=== PATIENT | male | born 2000 | race Caucasian/White ===

== ENCOUNTER 2022-12-09 10:00 | Emergency (ER) | payer OTHER, SELFPAY ==
[2022-12-09 10:04] VITALS: BP 137/80; PULSE 72; RESP 20; TEMP 36.6; O2SAT 98; BMI 27.3
--- NOTE | 2022-12-09 10:11 | ED.UPPEXIN1 ---
HPI - Extremity Injury (Upper) General Chief Complaint: Extremity Injury, Upper Stated Complaint: UPPER EXTREMITY INJURY/RIGHT ARM Time Seen by Provider: 12/09/22 10:11 Source: patient Mode of arrival: walk-in Limitations: no limitations History of Present Illness HPI narrative: pt presents to emergency department complaining of right elbow pain. Patient states pain started last night. He states that he was doing some heavy lifting and splint. A basket of laundry at home and had sharp pain to the lateral condyle. He states since then is having a hard time straightening it and moving it. Not taking anything at home for the pain as it doesn't Take any medications. He does not want any injections. He denies any direct trauma to the elbow. He denies any edema. He denies any paresthesias. Pain is worse when he moves his middle finger flexes and is. She denies any previous injury to the elbow. He denies any fever, chills. Related Data Previous Rx's Medication Instructions Recorded ibuprofen 800 mg tablet 800 mg PO Q8H PRN pain #20 tabs 12/09/22 prednisone 20 mg tablet 20 mg PO DAILY 3 days #3 tabs 12/09/22 Allergies Allergy/AdvReac Type Severity Reaction Status Date / Time No Known Drug Allergies Allergy Verified 12/09/22 10:08 Review of Systems ROS Status of ROS 10 or more systems reviewed and unremarkable except as noted in history and below Exam Narrative Exam Narrative: Nurses notes and vital signs reviewed and patient is not hypoxic. General: Nontoxic, Well-appearing and in no apparent distress. Skin: Warm, dry, no pallor noted. No Rash Head: Normocephalic, atraumatic. Neck: Supple, non-tender. Eye: Pupils are equal, round and EOMI. No scleral icterus. Ears, Nose, Mouth, and Throat: TM clear, no posterior oropharynx erythema or nasal mucosal hypertrophy, uvula is mid-line Oral mucosa is moist Cardiovascular: Regular Rate and Rhythm without murmur, gallop or rub. Respiratory: No accessory muscle use or respiratory distress. Lungs are clear to auscultation, no wheezing, rales or rhonchi Chest Wall: no tenderness Back: No midline thoracic or lumbar vertebral tenderness. No CVA tenderness Musculoskeletal: The rest to palpation to the right lateral condyle. Distal erythema, or ecchymosis, signs of trauma, or infection. Full range of motion. Radial pulse +2, capillary refill is brisk. Normal sensation to the thumb, middle finger, and pinky. no calf or popliteal tenderness, no lower extremity edema/swelling GI: Abdomen is soft, non-distended. Normal bowel sounds. No masses appreciated. No tenderness to palpation. No rebound, guarding, or rigidity noted. Neurological: A&O x4. No cranial nerve dysfunction observed. No truncal ataxia. Moves all extremities. Sensation intact. Psychiatric: Cooperative and interactive. Normal mood and affect. Constitutional Vital Signs, click to edit/add: Last Vital Signs Temp 98 F 12/09/22 10:04 Pulse 72 12/09/22 10:04 Resp 20 12/09/22 10:04 BP 137/80 H 12/09/22 10:04 Pulse Ox 98 12/09/22 10:04 O2 Del Method Room Air 12/09/22 10:04 Course Vital Signs Vital signs: Vital Signs Temperature 98 F 12/09/22 10:04 Pulse Rate 72 12/09/22 10:04 Respiratory Rate 20 12/09/22 10:04 Blood Pressure 137/80 H 12/09/22 10:04 Pulse Oximetry 98 12/09/22 10:04 Oxygen Delivery Method Room Air 12/09/22 10:04 Temperature 98 F 12/09/22 10:04 Pulse Rate 72 12/09/22 10:04 Respiratory Rate 20 12/09/22 10:04 Blood Pressure 137/80 H 12/09/22 10:04 Pulse Oximetry 98 12/09/22 10:04 Oxygen Delivery Method Room Air 12/09/22 10:04 MDM - Extremity Injury (Upper) MDM Narrative Medical decision making narrative: History and physical is consistent with lateral epicondylitis. X-ray was done and is unremarkable. This was reviewed and interpreted by me. Patient was given anti-inflammatories, steroids, advised to use a brace, Sourav wrap was applied for now. Rest follow-up with primary care doctor. At this time the patient is without objective evidence of an acute process requiring hospitalization or inpatient management. The patient has remained hemodynamically stable. No additional indication for emergent studies at this time. I answered all questions. Discussed discharge instructions including standard anticipatory guidance and what should prompt a return to the emergency department, including if they get worse are not getting better or develops any new or concerning symptoms. I've given them specific time frame in which to follow-up, and who to follow-up with. The patient demonstrates understanding. Patient is nontoxic and stable for discharge with outpatient follow-up. This note was created with the assistance of a speech recognition program. Although the intention is to generate documents that actually reflects the content of the visit, no guarantees can be provided that every mistake has been identified and corrected by editing. Differential Diagnosis Differential diagnosis: Likely sprain and strain of wrist and fracture of humerus Discharge Plan Discharge Chief Complaint: Extremity Injury, Upper Clinical Impression: Epicondylitis, lateral (tennis elbow) Patient Disposition: Home, Self-Care Time of Disposition Decision: 11:18 Condition: Good Mode of Transportation: Private Vehicle Prescriptions / Home Meds: New ibuprofen 800 mg tablet 800 mg PO Q8H PRN (Reason: pain) Qty: 20 0RF prednisone 20 mg tablet 20 mg PO DAILY 3 Days Qty: 3 0RF Instructions: Tennis Elbow (ED) Additional Instructions: Rest, take the inflammatories as prescribed. use the sourav wrap. Follow-up with primary care doctor next week for reevaluation. Return to the emergency department with any problems concerns as discussed. Stand Alone Forms: Portal Instructions Referrals: Physician,Non-Staff, MD [Primary Care Provider] - 1 week Discharge Date/Time: 12/09/22 11:31
--- NOTE | 2022-12-09 10:14 | PC.NURSE ---
PT STATES WHEN HE FULLY EXTENDS RIGHT ELBOW I WHEN THE PAIN IS INCREASED. STATES HE WAS LIFTING A LOT OF BUCKETS OF WATER YESTERDAY AND THINKS HE PULLED SOMETHING.
--- NOTE | 2022-12-09 10:24 | XR_ITS ---
The [address] [address] Patient Name: NETO LUNA MRN: [id number] date: 2000 Sex: M Assigned Patient Location: ER Current Patient Location: ER Accession/Order Number: [id number] Exam Date: 12/09/2022 10:38 Report Date: 12/09/2022 11:14 At the request of: SIS GRANT Procedure: XR elbow RT min 3V EXAM: XR elbow RT min 3V HISTORY: Right elbow pain. COMPARISON: None. TECHNIQUE: 3 views right elbow. FINDINGS: No fracture or dislocation right elbow joint. No evidence of elbow joint effusion. No significant soft tissue swelling or edema. No significant degenerative change. XR/XR elbow RT min 3V IMPRESSION: No acute process right elbow joint. Electronically authenticated by: BEKAH ELIZONDO Date: 12/09/2022 11:14
[2022-12-09] MEDS: IBUPROFEN 400 MG TABLET 800 MG PO (10:52)
== END 2022-12-09 11:31 | disposition home or self-care (01) ==
PROVIDERS: Emergency Provider Emergency Medicine
DX: M77.11 Lateral epicondylitis, right elbow (principal)
CPT/HCPCS: 73080; 99283

== ENCOUNTER 2023-04-02 09:19 | Emergency (ER) | payer BC, OTHER, SELFPAY ==
[2023-04-02 09:22] VITALS: BP 131/72; PULSE 55; RESP 18; TEMP 36.9; O2SAT 99; BMI 30.1
--- NOTE | 2023-04-02 11:08 | XR_ITS ---
The [address] [address] Patient Name: NETO LUNA MRN: [id number] date: 2000 Sex: M Assigned Patient Location: ED.MAIN Current Patient Location: Accession/Order Number: [id number] Exam Date: 04/02/2023 11:09 Report Date: 04/02/2023 11:38 At the request of: ODELL BOWEN Procedure: XR chest 1V EXAMINATION: XR chest 1V 04/02/2023 8:37 AM PST HISTORY: cough TECHNIQUE: Single frontal view of the chest acquired. COMPARISONS: None. FINDINGS: Lines/tubes/other: None. Heart and mediastinum: The heart and the mediastinum are within normal limits for technique. Bones: No acute osseous abnormality. Lungs: The lungs are clear. There is no evidence of pneumonia or pulmonary edema. Pleura: There is no significant pleural effusion or pneumothorax. Other: None. XR/XR chest 1V IMPRESSION: No acute cardiopulmonary abnormality. Electronically authenticated by: JASON MIR Date: 04/02/2023 11:38
--- NOTE | 2023-04-02 11:13 | ED.GENADUL1 ---
HPI - General Adult General Chief complaint: Upper Respiratory Infection Stated complaint: CHEST PAIN Time Seen by Provider: 04/02/23 11:08 Source: patient Mode of arrival: walk-in Limitations: no limitations History of Present Illness HPI narrative: patient's here with cough and mucus production and congestion. Does not have a history of chronic obstructive pulmonary disease her childhood asthma. No history of hospitalizations for respiratory disease. nhe does gape but has not used tobacco cigarette products. He normally does not have any mucus production. He says he also has a lot of nasal congestion when this 1st started. He is otherwise good health. He does not drink heavily and has no immunocompromising diseases. He does not have a primary care doctor. He's had this for a couple weeks and just isn't getting better. Related Data Home Medications Medication Instructions Recorded Confirmed No Known Home Medications 04/02/23 04/02/23 Allergies Allergy/AdvReac Type Severity Reaction Status Date / Time No Known Drug Allergies Allergy Verified 12/09/22 10:08 [facility] Social History Smoking status: Current every day smoker Exam Narrative Exam Narrative: awake alert pleasant appears in no distress. Pulse oximetry is ninety-nine percent and he has no respiratory distress HEENT examination shows normal sized tonsils with no exudate or erythema. There is some postnasal drip. Otherwise pharynx looks normal. His lungs examination shows just very very mild scattered rhonchi but no bronchospasm or wheezing even with coughing maneuvers the lungs do not have bronchospasm. Patient otherwise has no cough during the examination. He has no history of abdominal pain or nausea vomiting or diarrhea. Constitutional Vital Signs, click to edit/add: Last Vital Signs Temp 98.5 F 04/02/23 09:22 Pulse 55 L 04/02/23 09:22 Resp 18 04/02/23 09:22 BP 131/72 04/02/23 09:22 Pulse Ox 99 04/02/23 09:22 O2 Del Method Room Air 04/02/23 09:22 Course Vital Signs Vital signs: Vital Signs Temperature 98.5 F 04/02/23 09:22 Pulse Rate 55 L 04/02/23 09:22 Respiratory Rate 18 04/02/23 09:22 Blood Pressure 131/72 04/02/23 09:22 Pulse Oximetry 99 04/02/23 09:22 Oxygen Delivery Method Room Air 04/02/23 09:22 Temperature 98.5 F 04/02/23 09:22 Pulse Rate 55 L 04/02/23 09:22 Respiratory Rate 18 04/02/23 09:22 Blood Pressure 131/72 04/02/23 09:22 Pulse Oximetry 99 04/02/23 09:22 Oxygen Delivery Method Room Air 04/02/23 09:22 Medical Decision Making MDM Narrative Medical decision making narrative: this is a nonsmoker otherwise healthy young man with several weeks starting out with upper respiratory symptoms and now has purulent sputum production. Chest x-ray does not show any lobar infiltrates a but will be reviewed by the radiologist. Because the duration of this and. Nature of his sputum we will start him on antibiotic therapy. Discharge Plan Discharge Chief Complaint: Upper Respiratory Infection Clinical Impression: Bronchitis Patient Disposition: Home, Self-Care Time of Disposition Decision: 11:16 Prescriptions / Home Meds: No Action No Known Home Medications Additional Instructions: Z-Tai Stand Alone Forms: Portal Instructions Referrals: Physician,Non-Staff, MD [Primary Care Provider] - 1 week
== END 2023-04-02 11:22 | disposition home or self-care (01) ==
PROVIDERS: Emergency Provider Emergency Medicine Emergency Medical Services
DX: J40 Bronchitis, not specified as acute or chronic (principal); F17.290 Nicotine dependence, other tobacco product, uncomplicated
CPT/HCPCS: 71045; 99283

== ENCOUNTER 2024-11-22 11:58 | Emergency (ER) | payer OTHER, SELFPAY ==
[2024-11-22 12:18] VITALS: BP 156/87; PULSE 64; TEMP 36.8; O2SAT 98; BMI 33.5
--- OUTSIDE RECORDS SUMMARY | 2024-11-22 12:21 | XMS_ITS | CCD ---
Author Organization [facility] Care Team Providers Care Storehouse Clerk Name Role Phone TRINO FERRER Unavailable Unavailable CARLA, GALILEA Unavailable Unavailable CARLA, GALILEA Unavailable Unavailable MARCO SOLIS Unavailable Unavailable HAY, GALILEA Unavailable Unavailable Unlisted, Physician Attending Unavailable Jinny Jalloh Unavailable Pao ANDREW Attending Unavailable Medications Current Medications Medication Drug Class(es) Dates Sig (Normalized) Sig (Original) fluticasone propionate 0.05 mg/actuat metered dose nasal spray (2 sources) Corticosteroid Start: 7 take 1 spray(s) nasal route once daily Fluticasone Propionate 50 MCG/ACT 1 spray in each nostril Nasally Once a day for 30 day(s) Apr, Active methylPREDNISolone 4 mg oral tablet (2 sources) Corticosteroid Start: 7 methylPREDNISolone 4 MG as directed Orally Once a day for 6 days Apr, Active Nilwood (No Known Home Meds) (1 source) Start: 8 Nilwood (No Known Home Meds) Active August 25, 2017 12:00am Completed/Discontinued Medications Medication Drug Class(es) Dates Sig (Normalized) Sig (Original) amoxicillin 875 mg oral tablet (1 source) Penicillin-class Antibacterial Start: 05-18-2017 take 1 tablet by mouth every twelve hours Amoxicillin 875 MG 1 tablet Orally every 12 hrs for 10 day(s) Apr, Not-Taking betamethasone 0.5 mg/ml / clotrimazole 10 mg/ml topical cream (1 source) Azole Antifungal, Corticosteroid Start: 06-24-2017 End: 07-06-2017 Clotrimazole-Betame thasone 1-0.05 % cream Discontinued 1 APPLIC TOPICAL Twice daily 15 June 24, 2017 1:00am July 07, 2017 1:00am July 06, 2017 4:18am Brompheniramine / Pseudoephedrine (1 source) alpha-Adrenergic Agonist Start: 05-18-2017 take 5 mL by mouth every six hours as needed Bromfed DM 30-2-10 MG/5ML 5 ml as needed Orally every 6 hrs Apr, Not-Taking cephalexin 500 mg oral capsule (1 source) Cephalosporin Antibacterial Start: 06-24-2017 End: 07-06-2017 take 2 capsules by mouth twice daily Cephalexin (Keflex) 500 mg capsule Discontinued 1000 MG PO Twice daily 21 12June 24, 2017 1:00am July 06, 2017 4:18am cyclobenzaprine hydrochloride 10 mg oral tablet (1 source) Muscle Relaxant Start: 05-04-2017 take 1 tablet by mouth every eight hours Cyclobenzaprine HCl 10 MG 1 tablet as needed Orally Three times a day for 10 days Apr, Not-Taking ibuprofen 800 mg oral tablet (1 source) Nonsteroidal Anti-inflammatory Drug Start: 07-06-2017 End: 08-25-2017 take 1 tablet by mouth three times daily as needed for pain Ibuprofen 800 mg Tablet Discontinued 800 MG PO Three times daily as needed for Pain July 06, 2017 1:00am August 25, 2017 6:54pm metaxalone 800 mg oral tablet (1 source) Start: 07-06-2017 End: 08-25-2017 take 1 tablet by mouth three times daily as needed for muscle spasms Metaxalone (Skelaxin) 800 mg Tablet Discontinued 800 MG PO Three times daily as needed for Muscle Spasm July 06, 2017 1:00am August 25, 2017 6:54pm Problems Active Problems Problem Classification Problem Date Documented Da te Episodic/Chronic Immunizations and screening for infectious disease (2 sources) Contact with and (suspected) exposure to other viral communicable diseases; Translations: [Patient encounter status] Onset: 05-08-2021 Resolved: 05-08-2021 Episodic Comment on above: Problem List clean-u p per request of Phys. EHR Cmte Other skin disorders (1 source) Disorder of perianal skin; Translations: [Rash and other nonspecific skin eruption] 05-08-2023 Episodic Comment on above: Problem List clean-u p per request of Phys. EHR Cmte Spondylosis; intervertebral disc disorders; other back problems (1 source) Sciatica; Translations: [Sciatica, unspecified side] 05-08-2023 Episodic Comment on above: Problem List clean-u p per request of Phys. EHR Cmte Superficial injury; contusion (1 source) Contusion of hand; Translations: [Contusion of unspecified hand, initial encounter] 05-08-2023 Episodic Comment on above: Problem List clean-u p per request of Phys. EHR Cmte Viral infection (1 source) Genital warts; Translations: [Anogenital (venereal) warts] 05-08-2023 Episodic Comment on above: Problem List clean-u p per request of Phys. EHR Cmte Past or Other Problems Problem Classification Problem Date Documented Da te Episodic/Chronic Other upper respiratory infections (1 source) Acute laryngitis Onset: 05-08-2021 Resolved: 05-08-2021 Episodic Results Test Name Value Interpretation Reference Range Facility Consent for Treatmenton Consent for Treatment [id number]#1.00TIFF Normal [facility] In office Testingon 04-30-20 In office Testing [id number]#1.00TIFF Normal [facility] Registrationon 04-30-2023 Registration [id number]#1.00TIFF Normal [facility] COVID Quick Testingon 2020 Result Negative [facility] Other CARDIAC HODAN ADMITon 017 CKMB 0.68 ng/mL Normal <=2.37 The [facility] Comment on above: Performed By: #### C BEATRIZ KNOTT, TSH ####[facility] [address] [place], [place] [address]Bqovth Kathy Creatine kinase (CK) 144 U/L Normal 55-170 [facility] Comment on above: Performed By: #### C BEATRIZ KNOTT, TSH ####[facility] [address] [place], [place] [address]Dcotdg Kathy INR Coag RelTime (Bld) SEE BELOW Normal [facility] Comment on above: Result Comment: <0.0 34 ng/ml NEGATIVE 0.034-0.119 INDETERMINATE 0.120 AMI CUT OFF Performed By: #### C HEDY, BEATRIZ, TSH ####[facility] [address] [place] [address] Kathy JOSAFAT 59.5 ng/mL Normal <=121.0 [facility] Comment on above: Performed By: #### C MP, CMADM, TSH ####[facility] [address] [place] [address] Kathy TROP <0.012 Normal <=0.034 [facility] Comment on above: Performed By: #### C HEDY, BEATRIZ, TSH ####[facility] [address] [place] [address] Kathy CBC AUTO DIFFon 05-14-2017 Basophils Auto #/vol (Bld) 0.1 103/ul Normal 0.0-0.1 [facility] Comment on above: Performed By: #### C BC ####[facility] [address] [place] [address] Kathy Basophils/100 WBC Auto (Bld) 0.4 % Normal 0.2-2.0 [facility] Comment on above: Performed By: #### C BC ####[facility] [address] [place] [address] Kathy Eosinophils 0.1 103/ul Normal 0.0-0.7 [facility] Comment on above: Performed By: #### C BC ####[facility] [address] [place] [address] Kathy Eosinophils/100 leukocytes 0.7 % Critically low 0.9-7.0 [facility] Comment on above: Performed By: #### C BC ####[facility] [address] [place] [address] Kathy Erythrocyte distribution width Auto Ratio (RBC) 12.1 % Normal 11.0-15.0 [facility] Comment on above: Performed By: #### C BC ####[facility] [address] [place] [address] Kathy Erythrocytes (RBC) 5.76 106/ul Normal 4.70-6.10 [facility] Comment on above: Performed By: #### C BC ####[facility] [address] [place] [id number] Chavez Hematocrit (HCT) 48.7 % Normal 42.0-54.0 [facility] Comment on above: Performed By: #### C BC ####[facility] Dzoepw[address]hl[address] Kathy Hemoglobin mass conc (Bld) 16.6 g/dL Normal 14.0-18.0 [facility] Comment on above: Performed By: #### C BC ####[facility] [address] [place] [address] Kathy IG # 0.04 10e3/ul Critically high 0.00-0.03 [facility] Comment on above: Performed By: #### C BC ####[facility] [address] [place] [address] Kathy IG % 0.3 % Normal 0.0-0.5 [facility] Comment on above: Performed By: #### C BC ####[facility] [address] [place] [address] Kathy Lymphocytes 1.7 103/ul Normal 1.2-3.8 [facility] Comment on above: Performed By: #### C BC ####[facility] [address] [place], [place] [address]linda Chavez Lymphocytes/100 leukocytes 14.1 % Critically low 20.5-60.0 [facility] Comment on above: Performed By: #### C BC ####[facility] Pcaqestqxz[address] Kathy MANUAL DIFF REQ NO Normal [facility] Comment on above: Performed By: #### C BC ####[facility] [address] [place] [address] Kathy MCH 28.8 pg Normal 25.9-34.0 [facility] Comment on above: Performed By: #### C BC ####[facility] [address] [place], [place] [address]Kfhyiy Karen MCHC mass conc (RBC) 34.1 g/dL Normal 29.9-35.2 [facility] Comment on above: Performed By: #### C BC ####[facility] [address] [place], [place] [address]Bsnpjt Kathy MCV 84.5 fL Normal 80.0-94.0 [facility] Comment on above: Performed By: #### C BC ####[facility] [address] [place], [place] [address]Dvyogf Kathy Monocytes 1.0 103/ul Critically high 0.3-0.8 The [facility] Comment on above: Performed By: #### C BC ####[facility] [address] [place], [place] [address]Cblhgm Kathy Monocytes/100 leukocytes 7.7 % Normal 1.7-12.0 [facility] Comment on above: Performed By: #### C BC ####[facility] [address] [place] [address]Jact[address] Kathy Neutrophils 9.4 103/ul Critically high 1.4-6.5 The [facility] Comment on above: Performed By: #### C BC ####[facility] [address] [place], [place] [address]Catzqs Kathy Neutrophils/100 WBC Auto (Bld) 76.8 % Critically high 43.0-75.0 [facility] Comment on above: Performed By: #### C BC ####[facility] [address] [place], [place] [address]Uujqtu Kathy Platelet mean volume (PMV) 9.9 fL Normal 9.5-13.5 [facility] Comment on above: Performed By: #### C BC ####[facility] [address] [place], [place] [address]Yczmqu Kathy Platelets 276 103/ul Normal 150-450 [facility] Comment on above: Performed By: #### C BC ####[facility] Xtu[address]64 [place], [place] [address]Dvjwuf Kathy WBC (Leukocytes) 12.3 103/ul Critically high 4.0-11.0 Th e [facility] Comment on above: Performed By: #### C BC ####[facility] Msqrdmivzw[address] Kathy DRUG SCRN UR RAPIDon 017 BARBITURATES Negative Normal NEGATIVE [facility] Comment on above: Performed By: #### D SURAP ####[facility] Rpinzmgjbv3952 [address] Kathy PCP Negative Normal NEGATIVE [facility] Comment on above: Performed By: #### D SURAP ####[facility] Vtxovivolp[address] Kathy THC Negative Normal NEGATIVE [facility] Comment on above: Performed By: #### D SURAP ####[facility] [address] [place] [address] Kathy THRESH CONC 25 THRESHOLD CONCENTRATION IS 25 ng/mL. Normal [facility] Comment on above: Performed By: #### D SURAP ####[facility] Kcpizanlsa[address] Kathy THRESHOLD CONC 1000 THRESHOLD CONCENTRATION IS 1000 ng/mL. Normal [facility] Comment on above: Performed By: #### D SURAP ####[facility] [address] [place] [address] Kathy THRESHOLD CONC 200 THRESHOLD CONCENTRATION IS 200 ng/mL. Normal [facility] Comment on above: Performed By: #### D SURAP ####[facility] Lsmtantzch[address]45 [address] Kathy THRESHOLD CONC 300 THRESHOLD CONCENTRATION IS 300 ng/mL. Normal [facility] Comment on above: Performed By: #### D SURAP ####[facility] [address] [place] [address] Kathy THRESHOLD CONC 50 THRESHOLD CONCENTRATION IS 50 ng/mL. Normal [facility] Comment on above: Performed By: #### D SURAP ####[facility] [address] [place] [address] Kathy Urine, amphetamines presence Negative Normal NEGATIVE [facility] Comment on above: Performed By: #### D SURAP ####[facility] [address] [place] [address]Gerken Kathy Urine, benzodiazepines presence Negative Normal NEGATIVE [facility] Comment on above: Performed By: #### D SURAP ####[facility] Ptskdxbuly[address]347 [address] Kathy Urine, cocaine presence Negative Normal NEGATIVE [facility] Comment on above: Performed By: #### D SURAP ####[facility] Temxemudjn0300 [address] Kathy Urine, methadone presence Negative Normal NEGATIVE [facility] Comment on above: Performed By: #### D SURAP ####[facility] Hlbfxkmcss1304 [address] Kathy Urine, opiates presence Negative Normal NEGATIVE [facility] Comment on above: Performed By: #### D SURAP ####[facility] Bbbgohdtdt1852 [address] Kathy PROF 14(COMP METB)on 017 Alanine aminotransferase (ALT) 33 U/L Normal 21-72 [facility] Comment on above: Performed By: #### C BEATRIZ KNOTT, TSH ####[facility] Kmradfqhth9126 [address] Kathy Albumin 4.9 g/dL Normal 3.5-5.0 [facility] Comment on above: Performed By: #### C BEATRIZ KNOTT, TSH ####[facility] Vyovzuhakb[address] Kathy Albumin/Globulin Ratio 1.6 {ratio} Normal [facility] Comment on above: Performed By: #### C BEATRIZ KNOTT, TSH ####[facility] Ajjduzzoch[address]016 [address] Kathy Alkaline phosphatase (ALP) 92 U/L Normal 38-126 [facility] Comment on above: Performed By: #### C BEATRIZ KNOTT, TSH ####[facility] [address] [place] [address]Gerken Kathy Anion gap 16.2 mmol/L Normal [facility] Comment on above: Performed By: #### C BEATRIZ KNOTT, TSH ####[facility] [address] [place] [address]Gerken Kathy Aspartate aminotransferase (AST) 21 U/L Normal 17-59 [facility] Comment on above: Performed By: #### C BEATRIZ KNOTT, TSH ####[facility] Yqkbbyimjx64[address] Kathy Bilirubin Ql (U) 0.5 mg/dL Normal 0.2-1.3 The [facility] Comment on above: Performed By: #### C BEATRIZ KNOTT, TSH ####[facility] Bhfzilteux[address] Kathy BUN/Creatinine Ratio 16.2 mg/mg Normal [facility] Comment on above: Performed By: #### C BEATRIZ KNOTT, TSH ####[facility] Czlmdkqpgh[address] Kathy Calcium 9.9 mg/dL Normal 8.4-10.2 [facility] Comment on above: Performed By: #### C BEATRIZ KNOTT, TSH ####[facility] [address] [place] [address] Kathy Chloride 104 mmol/L Normal 98-107 [facility] Comment on above: Performed By: #### C BEATRIZ KNOTT, TSH ####[facility] [address]wny[address] [place] [address]Gerken Kathy CO2 28.0 mmol/L Normal 22.0-30.0 [facility] Comment on above: Performed By: #### C BEATRIZ KNOTT, TSH ####[facility] Wmxzjewcne[address] Kathy Creatinine 1.02 mg/dL Normal 0.66-1.25 [facility] Comment on above: Performed By: #### C BEATRIZ KNOTT, TSH ####[facility] [address] [place], [place] [address]Hafwoj Kathy eGFR (non-black) mL/min/{1.73_m2} Normal >=60 Th [facility] Comment on above: Performed By: #### C BEATRIZ KNOTT, TSH ####[facility] [address]raz[address] [place], [place] [address]Mkseaw Kathy Globulin 3.0 g/dL Normal [facility] Comment on above: Performed By: #### C BEATRIZ KNOTT, TSH ####[facility] [address]oc5[address] [place] [address]Gerken Kathy Glucose mass conc 80 mg/dL Normal 74-106 [facility] Comment on above: Performed By: #### C BEATRIZ KNOTT, TSH ####[facility] Egmwexbhst[address] Kathy Potassium molar conc 4.6 mmol/L Normal 3.4-5.0 [facility] Comment on above: Performed By: #### C BEATRIZ KNOTT, TSH ####[facility] Khxigzlwlw[address] Kathy Protein 7.9 g/dL Normal 6.1-8.2 [facility] Comment on above: Performed By: #### C BEATRIZ KNOTT, TSH ####[facility] Ybtj[address]djim[address] Kathy Sodium 143 mmol/L Normal 137-145 [facility] Comment on above: Performed By: #### C BEATRIZ KNOTT, TSH ####[facility] [address]wl[address] [place] [address]Gerken Kathy Urea nitrogen 16.0 mg/dL Normal 6.4-19.3 The [facility] Comment on above: Performed By: #### C BEATRIZ KNOTT, TSH ####[facility] [address]fssj[address]rv30[address] [place] [address]Gerken Kathy TSHon 05-14-2017 Thyroid stimulating hormone (TSH) 1.360 uIU/mL Normal 0.430-3.750 [facility] Comment on above: Performed By: #### C BEATRIZ KNOTT, TSH ####[facility] [address] [place], [place] [address]UlokakLori Chavez Thyroid stimulating hormone (TSH) SEE BELOW Normal [facility] Comment on above: Result Comment: <0.3 4 UIU/ml HYPERTHYROID 0.34-5.60 UIU/ml EUTHYROID >5.60 UIU/ml HYPOTHYROID Performed By: #### C MP, CMADM, TSH ####[facility] [address] [place] [address]Gerken Kathy XR CHEST 2 Von 05-14-2017 XR CHEST 2 V [address] [place] [address] Patient: LAURA LUNA Exam Date: 05/13/2017DOB: 2000 Gender:M : DR GALILEA AGUIRRE . Admission #: [id number] : Order #: [id number] HERE TO VIEW EXAM RADIOLOGY REPORT PROCEDURE: RADIOGRAPH CHEST 2 VIEWS COMPARISON: None. INDICATIONS: Acute chest pain with palpitations lasting a half hour today FINDINGS: LUNGS: No significant pulmonary parenchymal abnormalities. VASCULATURE: No increased pulmonary vasculature. PLEURA: No pneumothorax, effusion, or pleural thickening. CARDIAC: No cardiomegaly or cardiac silhouette abnormality. MEDIASTINUM: No visible mass or adenopathy. BONES: No fracture or visible bone lesion. OTHER: Negative. CONCLUSION: Normal examination. Dictated by: Marco Solis M.D. on 05/14/2017 at 07:36 Approved by: Marco Solis M.D. on 05/14/2017 at 07:37 Normal [facility] Vital Signs Date Time Vital Sign Value Performing Clinician Facility 08-03-2024 16:0400 Body height 175.26 cm [facility] 08-03-2024 16:0400 Body mass index (BMI) [Ratio] 31.4 kg/m2 [facility] 08-03-2024 16:0400 Body temperature 99 [degF] [facility] 08-03-2024 16:0400 Body weight 96.61 kg [facility] 08-03-2024 16:26-0400 Diastolic blood pressure 76 mm[Hg] [facility] 08-03-2024 16:26-0400 Heart rate 67 /min [facility] 08-03-2024 16:26-0400 Respiratory rate 16 /min [facility] 08-03-2024 16:26-0400 SaO2% (BldA) [Mass fraction] 96 % [facility] 08-03-2024 16:26-0400 Systolic blood pressure 135 mm[Hg] [facility] 05-08-2021 15:00-0500 Body height 1755.14 cm Jinny Jalloh Other [facility] Other 05-08-2021 15:00-0500 Body temperature 98.6 [degF] Jinny Jalloh Other [facility] Other 05-08-2021 15:00-0500 SaO2% (BldA) [Mass fraction] 99 % Jinny Jalloh Other [facility] Other Encounters Encounter Date Encounter Type Care Provider Facility Start: 08-03-2024 End: 08-03-2024 ambulatory [facility] Work Phone: Start: 08-03-2024 End: 08-03-2024 Patient encounter procedure [facility] Work Phone: Start: 04-30-2023 End: 05-01-2023 ambulatory Pao Costa LORRIE Facility:[facility] Start: 07-05-2021 ambulatory Physician Unlisted Faci lity:[facility] Start: 05-08-2021 End: 05-08-2021 ambulatory Jinny Jalloh Other [facility] Other Start: 05-08-2021 Office outpatient visit 15 minutes Jinny Jalloh [facility] Start: 05-13-2017 End: 05-14-2017 Ambulatory TRINO FERRER Facility:[facility] Payers Date Payer Category Payer Unknown 2000 Unknown [id number] 1961 Unknown [id number] [facility] [id number] Medicaid [place] Medicaid [id number] Unknown [place] BC/BS [id number] [facility] [id number] Social History Date Type Detail Facility Unknown if ever smoked [employer] [facility] Mulu Other Sex Assigned At Sex Assigned At Bir th [facility] Other Start: 08-03-2024 Tobacco smoking status NHIS Smoker (finding) [facility] Start: 08-03-2024 Sex Male (finding) [facility] Start: 2000 Sex Assigned At Male [facility] Evaluation note 05-08-2021 Note Date & Type Note Facility 05-08-2021 Evaluation note Encounter Date Diagnosis Assessment Notes Apr, Contact with and (suspected) exposure to other viral communicable diseases (ICD-10 - Z20.828) Today test was performed in office. Results are currently negative. That does not mean that you will not develop COVID or do not currently have a low viral count of COVID. The rapid test works best if symptoms have been over 72 hours and the results can vary if you are asymptomatic There is a higher chance of false negative results to occur if testing is performed too soon. It is recommended that even if results are negative and you have been exposed to someone that has COVID that you follow current CDC recommendations . These can be found at CDC.GOV. Follow up with primary care provider if symptoms persist or do not improve *HANOUT GIVEN ON OTC TREATMENTS, FOLLOW UP AND WHEN TO SEEK EMERGENCY TREATMENT Apr, Laryngitis (ICD-10 - J04.0) Apr, Other Additional time spent conducting pre-visit phone call, screening for symptoms, instructions on social distancing, application and removal of PPE, and cleaning of examination room, equipment and supplies was preformed. Patient education given for testing methodology and results. Patient care instructions given in writting by [facility] Home document. [facility] Other Evaluation note Note Date & Type Note Facility Evaluation note No assessment information availa [facility] Work Phone: History general Narrative - Reported Note Date & Type Note Facility History general Narrative - Reported Type Surgical History lipoma removed [facility] [facility] Other Summary Purpose Family History No Family History Records FoundNo Family History Records FoundNo Family History Records Found Advance Directives Advance Directive Response Recorded Date/ Time Advance Directives No June 24, 2017 1:14am Chief Complaint and Reason for Visit Chief Complaint Admit Date Cough, Congestion, shortness of breath [facility] 2024 4:24pm Additional Source Comments (unrecognized sect ion and content) No Status Records FoundNo Status Records FoundNo Status Records Found INFORMATION SOURCE (unrecogn ized section and content) DATE CREATED AUTHOR 11/19/2017 [facility] DATE CREATED AUTHOR AUTHOR'S ORGANIZ ATION 07/05/2021 [facility] DATE CREATED AUTHOR AUTHOR'S ORGANIZ ATION 05/02/2023 [facility] REASON FOR VISIT (unrecogniz ed section and content) #21 JAMI CASTELLANO [facility] Care Teams (unrecognized sec tion and content) Team Status: Active Member Role Status Dates PHYSICIAN NO FAMILY Primary Care Provider Active Team Status: Inactive Member Role Status Dates PHYSICIAN NO FAMILY Primary Care Provider Active Start: August 03, 2024 End: August 03, 2024 Maria E Orellana APRN Attending Provider Active Start: August 03, 2024 End: August 03, 2024 Goals (unrecognized section and content) Goals may be documented in a n alternate section FOR RECORDS PERTAINING TO PATIENTS WHO ARE OR HAVE BEEN ENROLLED IN A CHEMICAL DEPENDENCY/SUBSTANCEABUSE PROGRAM, SOME INFORMATION MAY BE OMITTED. This clinical summary was aggregated from multiple sources. Caution should be exercised in using it in the provision of clinical care. This summary normalizes information from multiple sources, and as a consequence, information in this document may materially change the coding, format and clinical context of patient data. In addition, data may be omitted in some cases. CLINICAL DECISIONS SHOULD BE BASED ON THE PRIMARY CLINICAL RECORDS. [employer] [facility]. provides no warranty or guarantee of the accuracy or completeness of information in this document.
--- NOTE | 2024-11-22 12:36 | CT_ITS ---
The [address] [address] Patient Name: NETO LUNA MRN: [id number] date: 2000 Sex: M Assigned Patient Location: ER Current Patient Location: ER Accession/Order Number: [id number] Exam Date: 11/22/2024 12:57 Report Date: 11/22/2024 13:00 At the request of: BIJU LAWLER MD Procedure: CT head/brain wo con CT BRAIN WITHOUT CONTRAST: CLINICAL HISTORY: Right eye visual change COMPARISON: None TECHNIQUE: Contiguous axial unenhanced images were obtained through the brain. This CT exam was performed using one or more following dose reduction techniques: Automated exposure control, adjustment of the mA and/or kV according to patient size, or use of iterative reconstruction technique. FINDINGS: There is no evidence of midline shift, intra or extra-axial fluid collection, hemorrhage or CT evidence of acute large vascular distribution stroke Visualized intraorbital contents appear unremarkable. Visualized paranasal sinuses are clear. The surrounding soft tissues are normal. CT/CT head/brain wo con IMPRESSION: NO ACUTE INTRACRANIAL ABNORMALITY. Impression dictated by: Zachary Aguirre M.D. 11/22/2024 1:00 PM Dictation Location: [place] [address] Electronically authenticated by: [id number] Y Date: 11/22/2024 13:00
--- NOTE | 2024-11-22 12:37 | ED.GENADUL1 ---
HPI HPI - General Adult General Chief complaint: Eye Problems Stated complaint: R EYE PAIN & BLACK [place]IS IN R EYE Time Seen by Provider: 11/22/24 12:28 Source: patient Mode of arrival: walk-in History of Present Illness HPI narrative: 24-year-old male presents for a visual problem. He has had it continuously for 2 days. He describes seeing a Braman out of his right eye only and just to the lateral aspect of the central visual axis. He states he can see through it and can read through it. He has had no trauma or headache or foreign body. He had a recent change in his glasses prescription. He has no symptoms in the left eye. He has had no drainage from his eye. Related Data Home Medications ?Medication ?Instructions ?Recorded ?Confirmed No Known Home Medications 04/02/23 11/22/24 Allergies Allergy/AdvReac Type Severity Reaction Status Date / Time No Known Drug Allergies Allergy Verified 12/09/22 10:08 Opioid HPI Opioid Management Most Recent Opioid Data: Last Pain Scale 6 Today, 12:34 Review of Systems ROS Narrative A ten point review of systems is negative except as noted above. PFSH PFSH Social History Smoking status: Current every day smoker Little interest or pleasure in doing things: not at all Feeling down, depressed, or hopeless: not at all Exam Narrative Exam Narrative: Nurses note and vital signs reviewed and patient is not hypoxic. General: The patient appears well and in no apparent distress. Patient is resting comfortably on cart. Skin: Warm, dry, no pallor noted. There is no rash noted. Head: Normocephalic, atraumatic Eye: Normal conjunctiva, no drainage. Funduscopic exam of the right eye shows no abnormalities. Sharp disc margins are present. No retinal detachment. Ears, Nose, Mouth, and Throat: oral mucosa is moist. Nares patent. Cardiovascular: Regular Rate and Rhythm Respiratory: Patient is in no distress, no accessory muscle use, lungs are clear to auscultation, no wheezing, rales or rhonchi Back: non-tender GI: Soft and nontender Musculoskeletal: The patient has no evidence of calf tenderness, no pitting edema, symmetrical pulses noted bilaterally Neurological: A&O, normal speech; cranial nerves II through XII are intact. Psychiatric: Cooperative Constitutional Vital Signs, click to edit/add: Last Vital Signs Temp 98.3 F 11/22/24 12:18 Pulse 64 11/22/24 12:18 Resp 16 11/22/24 12:18 BP 156/87 H 11/22/24 12:18 Pulse Ox 98 11/22/24 12:18 O2 Del Method Room Air 11/22/24 12:18 Course Vital Signs Vital signs: Vital Signs Temperature 98.3 F 11/22/24 12:18 Pulse Rate 64 11/22/24 12:18 Respiratory Rate 16 11/22/24 12:18 Blood Pressure 156/87 H 11/22/24 12:18 Pulse Oximetry 98 11/22/24 12:18 Oxygen Delivery Method Room Air 11/22/24 12:18 Temperature 98.3 F 11/22/24 12:18 Pulse Rate 64 11/22/24 12:18 Respiratory Rate 16 11/22/24 12:18 Blood Pressure 156/87 H 11/22/24 12:18 Pulse Oximetry 98 11/22/24 12:18 Oxygen Delivery Method Room Air 11/22/24 12:18 Medical Decision Making MDM Narrative Medical decision making narrative: The cause of his symptoms is uncertain at this point. He is referred to ophthalmology for appropriate follow-up. No evidence of retinal detachment or retinal blood vessel abnormality. Treatment diagnosis and follow-up were discussed with the patient. Differential Diagnosis Differential Diagnosis: [place]om[place], retinal detachment, glaucoma Imaging Data CT scan - head: Radiologist's impression: ITS Impressions Head CT 11/22/24 12:36 IMPRESSION: NO ACUTE INTRACRANIAL ABNORMALITY. Impression dictated by: Zachary Aguirre M.D. 11/22/2024 1:00 PM Dictation Location: [place] [address] Electronically authenticated by: [id number] Y Date: 11/22/2024 13:00 Discharge Plan Discharge Chief Complaint: Eye Problems Clinical Impression: Visual changes Patient Disposition: Home, Self-Care Time of Disposition Decision: 13:04 Condition: Good Mode of Transportation: Private Vehicle Prescriptions / Home Meds: No Action No Known Home Medications Print Language: Luxembourgish Instructions: Blurred Vision (ED) Referrals: PHAM MONSON [Physician, Opthalmology] - As soon as possible Physician,Non-Staff, MD [Primary Care Provider] - 1 week
== END 2024-11-22 13:09 | disposition home or self-care (01) ==
PROVIDERS: Emergency Provider Emergency Medicine
DX: H53.9 Unspecified visual disturbance (principal); F17.200 Nicotine dependence, unspecified, uncomplicated
CPT/HCPCS: 70450; 99284

== ENCOUNTER 2025-04-06 11:08 | Emergency (ER) | payer SELFPAY ==
--- OUTSIDE RECORDS SUMMARY | 2023-11-04 03:39 | XMS_ITS | Continuity of Care Document ---
Author Organization [facility] Address [address] [place] [address] Phone Care Team Providers Care Cupola Charger Name Role Phone Prachi Belle APRN Unavailable Unavaila ble Allergies, Adverse Reactions, Alerts Substance Reaction Status Criticality No Known Allergies Active No Inform ation Procedures Procedure Date OFFICE/OUTPATIENT VISIT, EST ROUTINE VENIPUNCTURE OFFICE/OUTPATIENT VISIT, EST OFFICE/OUTPATIENT VISIT, EST OFFICE/OUTPATIENT VISIT, NEW Advance Directives Directive Yes / No Effective Date File Name No Information Encounters Encounter Description Practice Location Reason(s) For Visit Diagnoses Date Provider Providers Copied on Encounter [facility], [address] [place] [address], [id number], tel:[phone] [facility] [place] No Information 4 Jailene Velarde. [address] [place] [address], [id number], [place]. tel:[phone] OFFICE/OUTPAT IENT VISIT, EST [facility], [address] [place] [address], [id number], tel:[phone] [facility] [place] STD Check (chief complaint)S TI screening (chief complaint)L ab Draw (chief complaint) Contact with and (suspected) exposure to infections with a predominantly sexual mode of transmissionBody mass index [BMI] 29.0-29.9, adult 4 Ben Valenzuela. [address] [place], [place], [id number] , [place]. tel:[phone] OFFICE/OUTPAT IENT VISIT, [facility], [address] [place], [place], [id number], [place] tel:[phone] [facility] f/u rash (chief complaint) Rash of groin 0- 0 Ben DEBBIE Valenzuela. [address] [place], [place], [id number] , [place]. tel:[phone] OFFICE/OUTPAT IENT VISIT, [facility], [address] [place], [place], [id number], [place] tel:[phone] [facility] f/u growths (chief complaint) Rash of groin Apr- 0- 9 Ben DEBBIE Valenzuela. [address] [place], [place], [id number] , [place]. tel: [phone] OFFICE/OUTPAT IENT VISIT, [facility], [address] [place], [place], [id number], [place] tel:[phone] [facility] STD screening (chief complaint) Body mass index (BMI) 26.0-26.9, adultEncounter for screening for HIVEncounter for STD screeningOther problems related to lifestyleRash of groin 0- 9 Contreras DEBBIE Valenzuela. [address] [place] [address], [id number] , [place]. tel:[phone] Family History Family Member Type Diagnosis Age At Onset Father Problem (finding) Alive and well Mother Problem (finding) Alive and well Brother Problem (finding) Alive and well Payers Payer name Insurance type Covered alliance party ID Michael pagan(s) Trung RODAS [id number] [id number] Medicaid Wrap - [id number] Social History Type Description Quantity Date Captured Comments Alcohol Use Details Unknown Caffeine Use Details Unknown Tobacco Use Status Smoking Status No Information Sex Male Sexual Orientation Straight or heterosexual Gender Identity Male Chief Complaint And Reason For Visit No Information Reason For Referral Reason For Referral No Information Plan Of Treatment Date Type Action Status Goal PRAPARE ASSESSMENT. Due on due Goal Depression screening. Due on due Goal RLP. Due on due Goal Tdap Vaccine. Due on 2023 due Goal Unhealthy drug use screening . Due on due Goal Influenza vaccine. Due on due Goal Hepatitis C screening. Due o n due Goal Tdap. Due on due Goal Depression screening. Due on due Goal Unhealthy drug use screening . Due on due Goal Influenza vaccine. Due on due Goal Tdap. Due on due Goal PRAPARE ASSESSMENT. Due on due Goal Tdap Vaccine. Due on 2023 due Goal Hepatitis C screening. Due o n due Goal RLP. Due on due Goal Lifestyle education regardin g diet completed Goal Tobacco cessation counseling completed Goal Dietary management education , guidance, and counseling completed Goal Tobacco cessation counseling completed History Of Present Illness Encounter Date Complaint History Of Prese nt Illness STI screening Partners- female sMultiple Partners past 12 months- noPrevious STI infection- noNew Partner since last checked- yesPrevious IV drug use- noKnown exposures- possible, partner from cheated on himIncarceration history- noPrevious intercourse for drugs or money- noPartner having symptoms- unknownPartner with poorly known past history- noSpecific concerns today:Makayla COLINDRES STD Check Just wants to ge t STI tested, no symptoms. Mohave his previous partner from 6 months ago was sleeping around.//Jamel QUEEN Lab Draw Labs drawn from right antecube in 3rd attempt. Patient felt naseous and cold, had to lay on table for 5 minutes after lab draw before feeling well again.//Jamel QUEEN f/u rash Pt is here to f/ u on rash in groin area. The cream that he was given out of our stock did not improve his rash and caused a burning sensation when applied. NDiltCMAHas used topical diligently with no noted improvement of the rash per the patient. Did stop shaving the area. Makayla CALDWELL f/u growths Pt is here to f/ u on growths in groin area. NDiltsCMARash to groin over 1 year, now spread to area between buttocks. Intense itching to the rash. Using Lamisil since last visit 2-3 weeks ago, has not noticed improvement to the rash. Denies feeling ill or fever. No one else currently has a similar rash. Stopped, shaving area to front of groin. Makayla CALDWELL STD screening Patient has a gr owth that is in pubic area and also has spread to anal region. Patient did go to er and was told it was HPV. Patient is also wanting all STI screening today. No other issues at this time.Pankaj Abreu. Complains of rash to genitalia beginning to the pubic area 1 ago and spreading along the suprapubic area and groin into the buttocks fold. Complains of itching to the rash. Denies drainage to the rash. Complains of occasional itching. Notified by ER they were concerned the lesions were HPV. Patient without history of HPV, girlfriend negative for HPV. Patient vaccinated for HPV after initial diagnosis. Rash continues to spread. No other medical history. [facility] Functional Status Date Functional Assessmen t No Information Instructions Date Instruction Additional Infor andra 1. TEST COMPLETED2. Will contact for POSITIVE TEST RESULTS ONLY.3. Use condoms Related to Contact with and (suspected) exposure to infections with a predominantly sexual mode of transmission Giving encouragement to exercise Related to Body mass index [BMI] 29.0-29.9, adult Lifestyle education regarding di et Related to Body mass index [BMI] 29.0-29.9, adult Dietary management e ducation, guidance, and counseling Related to Body mass index (BMI) 26.0-26.9, adult Giving encouragement to exercise Related to Body mass index (BMI) 26.0-26.9, adult Assessments Type Assessment Date No Information Patient Care Teams Name Effective Dates (start - stop) Status Members No Information
[2025-04-06 11:22] VITALS: BP 125/82; PULSE 66; TEMP 37.1; O2SAT 99; BMI 31.0
--- OUTSIDE RECORDS SUMMARY | 2025-04-06 12:45 | XMS_ITS | CCD ---
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 Name Role Phone TRINO FERRER Unavailable Unavailable CARLA, GALILEA Unavailable Unavailable HAY, GALILEA Unavailable Unavailable MARCO SOLIS Unavailable Unavailable HAY, GALILEA Unavailable Unavailable Unlisted, Physician Attending Unavailable Jinny Jalloh Unavailable Pao ANDREW Attending Unavailable Medications Current Medications MedicationDrug Class(es)DatesSig (Normalized)Sig (Original)fluticasone propionate 0.05 mg/actuat metered dose nasal spray (2 sources)CorticosteroidStart: 38-31-6767rddh 1 spray(s) nasal route once daily Fluticasone Propionate 50 MCG/ACT 1 spray in each nostril Nasally Once a day for 30 day(s) Apr, ActivemethylPREDNISolone 4 mg oral tablet (2 sources)CorticosteroidStart: 78-91-9299tkkqggZNXKNLXgjuld 4 MG as directed Orally Once a day for 6 days Apr, ActiveNo Name (No Known Home Meds) (1 source)Start: 81-55-0496Ys Name (No Known Home Meds) Active August 25, 2017 12:00am Completed/Discontinued Medications MedicationDrug Class(es)DatesSig (Normalized)Sig (Original)amoxicillin 875 mg oral tablet (1 source)Penicillin-class AntibacterialStart: 72-29-3183vqsf 1 tablet by mouth every twelve hoursAmoxicillin 875 MG 1 tablet Orally every 12 hrs for 10 day(s) Apr, Not-Takingbetamethasone 0.5 mg/ml / clotrimazole 10 mg/ml topical cream (1 source)Azole Antifungal, CorticosteroidStart: 06-24-2017 End: 28-39-3014Swwrleyxohae-Betamethasone 1-0.05 % cream Discontinued 1 APPLIC TOPICAL Twice daily 15 June 24, 2017 1:00am July 07, 2017 1:00am July 06, 2017 4:18amBrompheniramine / Pseudoephedrine (1 source)alpha-Adrenergic AgonistStart: 77-80-8116oegi 5 mL by mouth every six hours as neededBromfed DM 30-2-10 MG/5ML 5 ml as needed Orally every 6 hrs Apr, Not-Takingcephalexin 500 mg oral capsule (1 source)Cephalosporin AntibacterialStart: 06-24-2017 End: 51-30-1516ctkb 2 capsules by mouth twice dailyCephalexin (Keflex) 500 mg capsule Discontinued 1000 MG PO Twice daily 21 12June 24, 2017 1:00am July 06, 2017 4:18amcyclobenzaprine hydrochloride 10 mg oral tablet (1 source)Muscle RelaxantStart: 53-35-3797txdn 1 tablet by mouth every eight hoursCyclobenzaprine HCl 10 MG 1 tablet as needed Orally Three times a day for 10 days Apr, Not-Takingibuprofen 800 mg oral tablet (1 source)Nonsteroidal Anti-inflammatory DrugStart: 07-06-2017 End: 73-06-8636kpwu 1 tablet by mouth three times daily as needed for pain Ibuprofen 800 mg Tablet Discontinued 800 MG PO Three times daily as needed for Pain July 06, 2017 1:00am August 25, 2017 6:54pmmetaxalone 800 mg oral tablet (1 source)Start: 07-06-2017 End: 37-94-2565dqrp 1 tablet by mouth three times daily as needed for muscle spasmsMetaxalone (Skelaxin) 800 mg Tablet Discontinued 800 MG PO Three times daily as needed for Muscle Spasm July 06, 2017 1:00am August 25, 2017 6:54pm Problems Active Problems Problem ClassificationProblemDateDocumented DateEpisodic/ChronicImmunizations and screening for infectious disease (2 sources)Contact with and (suspected) exposure to other viral communicable diseases; Translations: [Patient encounter status]Onset: 05-08-2021 Resolved: 33-30-9288JoqqnjheVakduvb on above:Problem List clean-up per request of Phys. EHR CmteOther skin disorders (1 source)Disorder of perianal skin; Translations: [Rash and other nonspecific skin eruption]67-66-6893JddjuhqiWjvfcbx on above:Problem List clean-up per request of Phys. EHR CmteSpondylosis; intervertebral disc disorders; other back problems (1 source)Sciatica; Translations: [Sciatica, unspecified side]35-16-7709Pdrvxvbv Comment on above:Problem List clean-up per request of Phys. EHR CmteSuperficial injury; contusion (1 source)Contusion of hand; Translations: [Contusion of unspecified hand, initial encounter]82-23-0408UtzdhhpnYmxzrab on above:Problem List clean-up per request of Phys. EHR CmteViral infection (1 source)Genital warts; Translations: [Anogenital (venereal) warts]05-08-2023 EpisodicComment on above:Problem List clean-up per request of Phys. EHR Cmte Past or Other Problems Problem ClassificationProblemDateDocumented DateEpisodic/ChronicOther upper respiratory infections (1 source)Acute laryngitisOnset: 05-08-2021 Resolved: 74-40-3710Yzluwzdj Results Test NameValueInterpretationReference RangeFacilityConsent for Treatmenton 35-09-9746Xrdqrnd for [id number]#1.00TIFF [facility] HospitalIn office Testingon 51-21-6745Zl office Testing [id number]#1.00TIFMcKitrick HospitalRegistrationon 77-87-4567Aajngomezclu [id number]#1.00TIFMcKitrick HospitalCOVID Quick Testingon 43-09-7980PkljwlOljeojtlAgpae [employer] Other CARDIAC HODAN ADMITon 97-98-4071STUW8.68 ng/mLNormal <=2.37The Mercy HealthComment on above:Performed By: #### CMP, CMADM, TSH ####[facility] Syzwgxyjbf8453 [address] KarenCreatine kinase (CK)144 U/DEvhibb34-645Zqi [facility] HealthComment on above:Performed By: #### CMP, CMADM, TSH ####[facility] [address] [place] [address] KarenINR Coag RelTime (Bld)SEE BELOW NormalThe [facility] on above:Result Comment: <0.034 ng/ml NEGATIVE 0.034-0.119 INDETERMINATE 0.120 AMI CUT OFFPerformed By: #### CMP, CMADM, TSH ####[facility] [address]vws[address] [place] [address] UdsolTLW82.5 ng/mLNormal<=121.0The [facility] Columbusment on above:Performed By: #### CMP, CMADM, TSH ####[facility] Ukpwitlord[address] [place] [address] KarenTROP<0.012Normal<=0.034The [facility] Columbusment on above:Performed By: #### CMP, CMADM, TSH ####[facility] [address]aarkvsmvr[address] [place] [address] KarenCBC AUTO DIFFon 09-07-6692Yzdhumisu Auto #/vol (Bld)0.1 103/ulNormal0.0-0.1 The [facility] HealthComhen[facility] on above:Performed By: #### CBC ####[facility] Ehxihbbjwg[address] [place] [address] Kathy Basophils/100 WBC Auto (Bld)0.4 %Normal0.2-2.0The [facility] on above:Performed By: #### CBC ####[facility] Vrgzqtqjfh[address] [place] [address] KarenEosinophils0.1 103/ulNormal0.0-0.7The [facility] HealthComment on above:Performed By: #### CBC ####[facility] [address]cllzlxihf[address] [place] [address] KarenEosinophils/100 leukocytes0.7 %Critically low0.9-7.0The [facility] on above: Performed By: #### CBC ####[facility] [address] [place] [address]Gerken KarenErythrocyte distribution width Auto Ratio (RBC)12.1 %Xzzfeu45.0-15.0The [facility] HealthComment on above:Performed By: #### CBC ####[facility] [address]ufq[address] [place] [address] KarenErythrocytes (RBC)5.76 106/ulNormal4.70-6.10The [facility] HealthComment on above:Performed By: #### CBC ####[facility] Btaynbgsne[address] [place], [place] [address]Gerken KarenHematocrit (HCT) 48.7 %Wgytwl75.0-54.0The [facility]Com[facility] on above:Performed By: #### CBC ####[facility] P[address]oltxihi[address] [place], [place] [address]Gerken KarenHemoglobin mass conc (Bld)16.6 g/jIIjvrdz73.0-18.0The [facility]Com[facility] on above:Performed By: #### CBC ####[facility] Eegwvmro[address] [place], [place] [address]Gerken KarenIG #0.04 10e3/ul Critically high0.00-0.03The [facility]Com[facility] on above:Performed By: #### CBC ####[facility] Ovjpitxyqb[address] [place], [place] [address]Gerken KarenIG %0.3 %Normal0.0-0.5The [facility] on above: Performed By: #### CBC ####[facility] Yhhbxqdyna[address] [place], [place] [address]Gerken KarenLymphocytes1.7 103/ulNormal1.2-3.8The [facility]Com[facility] on above:Performed By: #### CBC ####[facility] Mqpnawltoa[address] [place], [place] [address]Gerken KarenLymphocytes/100 .1 %Critically low20.5-60.0The [facility] on above: Performed By: #### CBC ####[facility] Oudiylagcd[address] KarenMANUAL DIFF REQNONormalThe [facility]cy HealthComment on above:Performed By: #### CBC ####[facility] Fmxwaoz[address] [place], [place] [address]H28.8 pgNormal 25.9-34.0The [facility] HealthComment on above:Performed By: #### CBC ####[facility] R[address]knvdok[address] [place], [place] [address]HC mass conc (RBC)34.1 g/tQTswetb60.9-35.2The [facility] HealthComment on above:Performed By: #### CBC ####[facility] Vvopvzsgxe[address] [place], [place] [address]V84.5 iTShcfrz01.0-94.0The [facility] HealthComment on above:Performed By: #### CBC ####[facility] [address]emyqvrqic[address] [place] [address] KarenMonocytes1.0 103/ulCritically high0.3-0.8The [facility] HealthComment on above:Performed By: #### CBC ####[facility] Y[address]zfirepj[address] [place] [address] KarenMonocytes/100 leukocytes7.7 %Normal1.7-12.0The [facility]Com[facility] on above:Performed By: #### CBC ####[facility] Sx[address]alifiv[address] [place] [address] KarenNeutrophils9.4 103/ulCritically high1.4-6.5The [facility] HealthComment on above:Performed By: #### CBC ####[facility] [address]juhmed[address] [place] [address] KarenNeutrophils/100 WBC Auto (Bld)76.8 %Critically high43.0-75.0The [facility] HealthComment on above:Performed By: #### CBC ####[facility] Mgwmvxxdfb[address] [place] [address] KarenPlatelet mean volume (PMV)9.9 fLNormal9.5-13.5The [facility] HospitalComment on above:Performed By: #### CBC ####[facility] [address] [place] [address] PbrelMrpiibfij878 103/uaObmbqi861-955Dqn [facility] HospitalComment on above:Performed By: #### CBC ####[facility] [address]fe[address]zm[address] [place] [address] KarenWBC (Leukocytes)12.3 103/ulCritically high 4.0-11.0The [facility] HospitalComment on above:Performed By: #### CBC ####[facility] [address]by[address]fabhc[address] [place] [address] KarenDRUG SCRN UR RAPIDon 85-55-6006GANLKBEAIMVTHkdetdejSfcamuKQICQTJFAlp [facility] HospitalComment on above:Performed By: #### DSURAP ####[facility] [address]twh[address]hg[address] [place] [address] KarenPCP NegativeNormalNEGATIVEThe [facility] HospitalComment on above:Performed By: #### DSURAP ####[facility] Ucyghtv[address] [place] [address] KarenTHCNegativeNormalNEGATIVEThe [facility] HospitalComment on above: Performed By: #### DSURAP ####[facility] [address]yswnqki[address] [place] [address] KarenTHRESH CONC 25THRESHOLD CONCENTRATION IS 25 ng/mL.NormalThe [facility] HospitalComment on above:Performed By: #### DSURAP ####[facility] [address]ygdhrafee[address] [place] [address] KarenTHRESHOLD CONC 1000THRESHOLD CONCENTRATION IS 1000 ng/mL.NormalThe [facility] HospitalComment on above:Performed By: #### DSURAP ####[facility] Lyskkvqrao[address] [place] [address] KarenTHRESHOLD CONC 200THRESHOLD CONCENTRATION IS 200 ng/mL.NormalThe [facility] HospitalComment on above:Performed By: #### DSURAP ####[facility] Hzjriqurxq4833 [address] KarenTHRESHOLD CONC 300THRESHOLD CONCENTRATION IS 300 ng/mL.NormalThe [facility] HospitalComment on above:Performed By: #### DSURAP ####[facility] Mssadwouoi[address] [place] [address] KarenTHRESHOLD CONC 50THRESHOLD CONCENTRATION IS 50 ng/mL.NormalThe [facility] HospitalComment on above:Performed By: #### DSURAP ####[facility] Nl[address]ro[address] [place] [address] KarenUrine, amphetamines presenceNegativeNormalNEGATIVEThe [facility] HospitalComment on above:Performed By: #### DSURAP ####[facility] [address]wknxy[address] [place] [address] KarenUrine, benzodiazepines presenceNegative NormalNEGATIVEThe [facility] HospitalComment on above:Performed By: #### DSURAP ####[facility] [address]rmjfsd[address] [place] [address] KarenUrine, cocaine presenceNegativeNormalNEGATIVEThe [facility] HospitalComment on above:Performed By: #### DSURAP ####[facility] [address]sojqrww[address] [place] [address] KarenUrine, methadone presenceNegative NormalNEGATIVEThe [facility] HospitalComment on above:Performed By: #### DSURAP ####[facility] [address]kmfsqc[address] [place] [address] KarenUrine, opiates presenceNegativeNormalNEGATIVEThe [facility] HospitalComment on above:Performed By: #### DSURAP ####[facility] [address]axoeolew[address] [place] [address] KarenPROF 14(COMP METB)on 05-14-2017 Alanine aminotransferase (ALT)33 U/CLdkbij47-64Mpa [facility] HospitalComment on above:Performed By: #### CMP, CMADM, TSH ####[facility] Xke[address]aw[address]lb[address] [place] [address] KarenAlbumin4.9 g/dLNormal3.5-5.0The [facility] HealthComment on above:Performed By: #### BEATRIZ MONTES DE OCA, TSH ####[facility] Fdbmlwxxws1010 [address] KarenAlbumin/Globulin Ratio1.6 {ratio}NormalThe [facility] HealthComment on above:Performed By: #### FALGUNI CMADM, TSH ####[facility] Zlmqdjqsxb4495 [address] KarenAlkaline phosphatase (ALP)92 U/L Llwxyz46-435Gnd [facility] HealthComment on above:Performed By: #### BEATRIZ MONTES DE OCA, TSH ####[facility] Wmylmzwwth6767 [address] KarenAnion gap16.2 mmol/LNormalThe [facility] HealthComment on above:Performed By: #### BEATRIZ MONTES DE OCA, TSH ####[facility] Odgxzwggcb5755 [address] KarenAspartate aminotransferase (AST) 21 U/RQnlmgi50-88Uti [facility] HealthComment on above:Performed By: #### BEATRIZ MONTES DE OCA, TSH ####[facility] Nsaimucwxu5508 [address] KarenBilirubin Ql (U)0.5 mg/dLNormal0.2-1.3The [facility] Comment on above:Performed By: #### FALGUNI CMADM, TSH ####[facility] Qiapieymuu7600 [address] KarenBUN/Creatinine Ratio16.2 mg/mgNormalThe [facility] HealthComment on above:Performed By: #### FALGUNI CMADM, TSH ####[facility] Hjpmaiciun9484 [address] KarenCalcium9.9 mg/dLNormal8.4-10.2The [facility] HealthComment on above:Performed By: #### CMP, CMADM, TSH ####[facility] [address] [place] [address]Gerken RugznHbgxwini610 mmol/KBjzziy79-102 The [facility]Com[facility] on above:Performed By: #### CMP CMADM, TSH ####[facility] Xskilyfnor[address] [place] [address]Gerken EntnmIW673.0 mmol/SDmprjh64.0-30.0The [facility] HealthComment on above: Performed By: #### CMP, CMADM, TSH ####[facility] Bacvqkfeck4411 [address] KarenCreatinine1.02 mg/dLNormal0.66-1.25 The [facility] on above:Performed By: #### FALGUNI CMADM, TSH ####[facility] Qvxfffgoxu6112 [address] KareneGFR (non-black)mL/min/{1.73_m2}Normal>=60The [facility] on above:Performed By: #### CMP, CMADM, TSH ####[facility] R[address] [place] [address]Gerken KarenGlobulin3.0 g/dLNormalThe [facility]Com[facility] on above:Performed By: #### CMP CMADM, TSH ####[facility] Nnu[address]xjfwiv[address] [place] [address]Gerken KarenGlucose mass conc80 mg/yPCunykp30-376Lyi [facility] on above: Performed By: #### CMP, CMADM, TSH ####[facility] Rwbrkfhtgb4912 [address] KarenPotassium molar conc4.6 mmol/LNormal 3.4-5.0The [facility] on above:Performed By: #### CMP, CMADM, TSH ####[facility] D[address]hyw[address] [place] [address]Gerken KarenProtein7.9 g/dLNormal6.1-8.2The [facility]Com[facility] on above:Performed By: #### CMP, CMADM, TSH ####[facility] Kceivxberr1313 [address] YjthtWhggik560 mmol/LOaugki560-953Opj [facility] HealthComment on above:Performed By: #### CMP, CMADM, TSH ####[facility] Synwrmruef9758 [address] KarenUrea .0 mg/dLNormal6.4-19.3The [facility] HealthComment on above:Performed By: #### CMP, CMADM, TSH ####[facility] [address] [place] [address]Gerken KarenTSHon 71-08-6264Jfumrgo stimulating hormone (TSH)1.360 uIU/mLNormal0.430-3.750The [facility] HealthComment on above: Performed By: #### CMP, CMADM, TSH ####[facility] Icgsvwtkab4370 [address] KarenThyroid stimulating hormone (TSH)SEE BELOWNormalThe [facility]cy HealthComment on above:Result Comment: <0.34 UIU/ml HYPERTHYROID 0.34-5.60 UIU/ml EUTHYROID >5.60 UIU/ml HYPOTHYROIDPerformed By: #### FALGUNI, CMADM, TSH ####[facility] Hrdkhrmwab4071 [address] KarenXR CHEST 2 Von 74-88-9505HL CHEST 2 V[address] [place] [address] Patient: LAURA LUNA Exam Date: 05/13/2017DOB: 2000 Gender:M : DR GALILEA AGUIRRE . Admission #: [id number] : Order #: [id number] HERE TO VIEW EXAM RADIOLOGY REPORT PROCEDURE: RADIOGRAPH CHEST2 VIEWS COMPARISON: None. INDICATIONS: Acute chest pain [...] by: Marco Solis M.D. on 05/14/2017 at 07:37[facility] Vital Signs Date TimeVital SignValuePerforming SxviluyzxUefqezfr46-60-1080 16:26-0400Body mivruq689.26 [facility]03[facility]2025 16:26-0400Body mass index (BMI) [Ratio]31.4 kg/x1BdutuvnxdC[facility] Clinic03-10-2025 16:26-0400Body uubtipuylsg26 [degF][facility]03-10-2025 16:26-0400Body dyvska24.61 kgC[facility]03-10-2025 16:26-0400Diastolic blood tvvnsufs55 mm[Hg][facility] 08-03-2024 16:26-0400Heart rate67 /[facility] 08-03-2024 16:26-0400Respiratory rate16 /[facility] 08-03-2024 16:26-4565VmY9% (BldA) [Mass fraction]96 %[facility]03-10-2025 16:26-0400Systolic blood srssixfm027 mm[Hg][facility]12-13-2021 15:00-0500Body biqqas7254.14 cmSfabricio Jalloh Other [facility] [employer] Other 12-13-2021 15:00-0500Body fkwxjegfwat41.6 [degF] Jinny Jalloh Other [employer] Other 12-13-2021 15:00-1179UkI5% (BldA) [Mass fraction]99 % Jinny Jalloh Other [facility] [employer] Other Encounters Encounter DateEncounter TypeCare ProviderFacilityStart: 08-03-2024 End: 30-34-4815rvwbxyclfhFtajpnsycMadison Health Work Phone: Start: 08-03-2024 End: 10-90-3632Mfcqffl encounter procedureCarolinas [facility] Work Phone: Start: 04-30-2023 End: 35-98-3341sdcpclyjoeRqgo T AMESFacility:[facility] Start: 05-51-1939qxvjtmodzxUrzlstyes UnlistedFacility:[facility] Start: 05-08-2021 End: 89-85-5043wurescgongSjhhmppmd Breault Other [employer] Other Start: 45-88-7757Swvlkr outpatient visit 15 minutes Jinny JallohFPG Urgent Care ClydeStart: 05-13-2017 End: 59-89-1481IliqjgpceyWUCZHSM W TOBEYFacility:H1 Payers DatePayer CategoryPayerPolicy [id number] Cross Blue Shield [id number] [id number] HRSA Uninsured [id number] Social History DateTypeDetailFacilityUnknown if ever smokedNoTiscali [employer] Other Sex Assigned At BirthSex Assigned At BirthTiscali [employer] Other Start: 08-75-1742Ouautwg smoking status NHISSmoker (finding)[facility]: 56-93-0268DyvMrhd (finding) [facility]: 63-13-5583Wnk Assigned At Birth[facility] Evaluation note 05-08-2021 Note Date & EixjWgvhPxuisrnw15-70-0898 Evaluation note* Encounter Date Diagnosis Assessment Notes Treatment Notes Treatment Clinical Notes Apr, Contact with and (lopez spected) exposure to other viral communicable diseases (ICD-10 [...] is performed too soon. It is recommended thateven if results are negative and you have been exposed to someone that has COVID that you follow current CDC recommendations. These can be found at CDC.GOV. Follow up with primary care provider if symptoms persist or do not improve *HANOUT GIVEN ON OTC TREATMENTS, FOLLOW UP AND WHEN TO SEEK EMERGENCY TREATMENT Apr,aryngitis (ICD-10 - J04.0) Apr,Other Additional time spent conducting pre-visit phone call, screening for symptoms, instructions on social distancing, application and removal of PPE, and cleaning of examination room, equipment and supplies was preformed. Patient education given for testing methodology and results. Patient care instructions given in writting by CDC Care At Home document. [employer] Other Evaluation note Note Date & TypeNoteFacilityEvaluation noteNo assessment information available [facility] Work Phone: History general Narrative - Reported Note Date & TypeNoteFacilityHistory general Narrative - Reported* Type Description Date Surgical History lipoma removed [employer] Other Summary Purpose Family History No Family History Records FoundNo Family History Records FoundNo Family History Records Found Advance Directives Advance Directive Response Recorded Date/ Time Advance Directives No June 24, 2017 1:14am Chief Complaint and Reason for Visit Chief Complaint Admit Date Cough, Congestion, shortness of breath Gorge fagan 2024 4:24pm Additional Source Comments (unrecognized sect ion and content) No Status Records FoundNo Status Records FoundNo Status Records Found INFORMATION SOURCE (unrecogn ized section and content) DATE CREATED AUTHOR 11/19/2017 [facility] DATE CREATED AUTHOR AUTHOR'S ORGANIZ ATION 07/05/2021 [facility] DATE CREATED AUTHOR AUTHOR'S ORGANIZ ATION 05/02/2023 [facility] REASON FOR VISIT (unrecogniz ed section and content) #21 BLUE HUNDAI, UPPER RESPI RATORY [facility] Care Teams (unrecognized sec tion and content) Team Status: Active Member Role Status Dates PHYSICIAN NO FAMILY Primary Care Provider Active Team Status: Inactive Member Role Status Dates PHYSICIAN NO FAMILY Primary Care Provider Active Start: August 03, 2024 End: August 03, 2024Maria E Orellana APRNAttenblaine ProviderActiveStart: August 03, 2024 End: August 03, 2024 [...] BE BASED ON THE PRIMARY CLINICAL RECORDS. [employer] provides no warranty or guarantee of the accuracy or completeness of information in this document.
== END 2025-04-06 12:52 | disposition left against medical advice (07) ==
LOC: ER 12:42
PROVIDERS: Emergency Provider Student in an Organized Health Care Education/Training Program
DX: Z53.21 Procedure and treatment not carried out due to patient leaving prior to being seen by health care provider (principal)